=== PATIENT | female | born 1960 | race Hispanic/Latino ===

== ENCOUNTER 2023-04-06 06:15 | Day surgery (SDC) | payer MEDICARE ==
[2023-04-04 11:34] LABS: BASOPHILS # (AUTO) 0.06 K/uL (0.00-0.20); BASOPHILS % (AUTO) 0.9 % (0.0-5.0); EOSINOPHILS # (AUTO) 0.18 K/uL (0.00-0.70); EOSINOPHILS % (AUTO) 2.6 % (0.0-8.0); HEMATOCRIT 39.7 % (36-48); IMMATURE GRANULOCYTE ABSOLUTE 0.03 K/uL (0-1); LYMPHOCYTES # (AUTO) 2.5 K/uL (1.0-4.8); LYMPHOCYTES % (AUTO) 36.5 % (21.0-51.0); MEAN CORPUSCULAR HEMOGLOBIN 25.4 pg (27.0-33.0); MEAN CORPUSCULAR HGB CONC 31.5 g/dL (32.0-36.0); MEAN CORPUSCULAR VOLUME 80.5 fL (79-99); MONOCYTES # (AUTO) 0.5 K/uL (0.1-1.0); MONOCYTES % (AUTO) 6.6 % (3.0-13.0); NEUTROPHILS # (AUTO) 3.6 K/uL (1.8-7.7); PLATELET COUNT (AUTO) 261 K/uL (130-400); RED BLOOD CELL COUNT(AUTO) 4.93 MIL/uL (4.00-5.50); WHITE BLOOD COUNT (AUTO) 6.8 K/uL (4.8-10.8)
[2023-04-04 11:45] LABS: CREATININE 1.3 mg/dL (0.5-1.5); POTASSIUM 4.8 mmol/L (3.5-5.1)
[2023-04-04 11:51] LABS: INR 0.93 (0.85-1.15); PROTHROMBIN TIME 10.6 SEC (9.6-11.6)
[2023-04-04 11:53] LABS: PARTIAL THROMBOPLASTIN TIME 26.5 SEC (26.3-35.5)
[2023-04-04 12:24] VITALS: BP 111/57; PULSE 67; RESP 18
[2023-04-06] VITALS (18 sets, daily range): BP systolic 106–157; BP diastolic 60–86; PULSE 64–87; RESP 12–18
[~2023-04-06] VITALS: Ht 160 cm; Wt 83.9 kg
[~2023-04-06 06:15] MED LIST: BUSP5TAB3 PO; DULO20CA18 PO; GLIP10TA9 PO; METF-444 PO; METO25 PO; PARO40TA72 PO; RISP4TAB73 PO
[2023-04-06] MEDS ORDERED: 0.9%NACL 1000ML 1,000 ML IV ONE (06:28)
[2023-04-06] MEDS ORDERED: ZOSYN 3.375GM+NS 50ML 50 ML IVPB ONE (06:28)
[2023-04-06] MEDS ORDERED: METHYLENE BLUE 5 MG/ML AMP ONE (11:10)
[2023-04-06] MEDS ORDERED: SUCCINYLCHOLINE 200MG/10ML SYR ONE (13:26)
[2023-04-06] MEDS ORDERED: ONDANSETRON 4MG INJ ONE (13:26)
[2023-04-06] MEDS ORDERED: LIDOCAINE PF 100MG/5ML (2%) SYRINGE 5ML ONE (13:26)
[2023-04-06] MEDS ORDERED: GLYCOPYRROLATE 1 MG/5 ML SYRINGE ONE (13:26)
[2023-04-06] MEDS ORDERED: DEXAMETHASONE SOD PHOSPHATE 10MG/ML 1ML VIAL ONE (13:26)
[2023-04-06] MEDS ORDERED: PROPOFOL 10 MG/ML 20ML VIAL IV ONE (13:27)
[2023-04-06] MEDS ORDERED: MIDAZOLAM HCL 1 MG/ML 2ML VIAL ONE (13:27)
[2023-04-06] MEDS ORDERED: ROCURONIUM 10MG/1ML SYR 10 MG/ML ML ONE (13:27)
[2023-04-06] MEDS ORDERED: NEOSTIGMINE 5MG/5ML SYR IV ONE (13:27)
[2023-04-06] MEDS ORDERED: FENTANYL CITRATE PF 50 MCG/1 ML 2ML VIAL ONE (13:27)
[2023-04-06] MEDS ORDERED: KETAMINE 50MG/ML SYRINGE 50 MG/ML DISP.SYRIN ONE (13:41)
[2023-04-06] MEDS ORDERED: KETOROLAC 30MG VIAL (30MG/ML) ONE (14:21)
[2023-04-06] MEDS ORDERED: LIDOCAINE HCL 1% 20 ML VIAL ONE (14:36)
[2023-04-06] MEDS ORDERED: BUPIVACAINE/PF 0.25% 30ML VIAL IJ ONE ×2 (14:36→14:40)
[2023-04-06] MEDS ORDERED: EPHEDRINE SULFATE 50 MG/ML AMPULE ONE (14:58)
[2023-04-06] MEDS ORDERED: PHENYLEPHRINE HCL 10 MG/ML 1ML VIAL IV ONE (15:03)
[2023-04-06] MEDS ORDERED: MEPERIDINE-PF 25 MG/ML SYG ONE (16:19)
[2023-04-06] MEDS ORDERED: ACETAMINOPHEN WITH CODEINE 1 TAB TAB ONE (16:52)
== END 2023-04-06 17:35 | disposition home or self-care (01) ==
LOC: DAH 06:15
PROVIDERS: ATTEND Surgery
DX: C50.912 Malignant neoplasm of unspecified site of left female breast (principal); Z20.822 Contact with and (suspected) exposure to COVID-19; R59.0 Localized enlarged lymph nodes; I10 Essential (primary) hypertension; E11.9 Type 2 diabetes mellitus without complications; F32.A Depression, unspecified; E66.9 Obesity, unspecified; Z79.899 Other long term (current) drug therapy; Z79.01 Long term (current) use of anticoagulants; Z90.710 Acquired absence of both cervix and uterus; Z80.3 Family history of malignant neoplasm of breast; Z68.32 Body mass index [BMI] 32.0-32.9, adult
CPT/HCPCS: 87426; 80048; 85025; 85610; 85730; 36415; 38525; 19301; 88309; 78195; 82948 ×2; 88331; 88332; 88307 ×3; 76098; 19281; A6260; A4663; A4606; J3010; J0330; J3490 ×4; J1100; J2710; J7030; J2001; J2250; J2704; J2405; J1885; J2543; J2175; J2371; A9541; C1819; A4649; A4215; A4223; A4222; A4221; Q9968